=== PATIENT | male | born 1950 | race Caucasian/White ===

== ENCOUNTER 2017-09-09 12:00 | Observation (INO) | payer MEDICARE, OTHER ==
[2017-09-09 12:51] LABS: ALT (SGPT) 24 U/L (8-55); AST (SGOT) 24 U/L (5-34); Albumin 4.7 g/dL (3.4-4.8); Alkaline Phosphatase 100 U/L (40-150); Anion Gap 15 mmol/L (10-20); BUN (Urea Nitrogen) 17 mg/dL (8.4-25.7); Bilirubin, Total 2.9 mg/dL (0.2-1.2); CK (CPK) 93 U/L (30-200); Calc. Creatinine Clearance 0 mL/min (70-130); Calcium 9.8 mg/dL (7.8-10.44); Carbon Dioxide 22 mmol/L (23-31); Chloride 102 mmol/L (98-107); Estimated GFR-MDRD 77; Globulin 2.9 g/dL (2.4-3.5); Glucose 104 mg/dL (80-115); Lipase 17 U/L (8-78); Potassium 3.8 mmol/L (3.5-5.1); Protein, Total 7.6 g/dL (5.8-8.1); Sodium 135 mmol/L (136-145)
[2017-09-09 12:53] LABS: #Lymphocytes 0.7 thou/uL (1.20-3.40); #Monocytes 0.7 thou/uL (0.11-0.59); #Neutrophils 3.9 thou/uL (1.40-6.50); %Basophils 0.6 % (0.0-1.0); %Eosinophils 0.4 % (0.0-10.0); %Lymphocytes 13.2 % (21.0-51.0); %Monocytes 12.6 % (0.0-10.0); %Neutrophils 73.2 % (42.0-75.0); Mean Corpuscular HGB CONC 34.6 g/dL (32.0-36.0); Mean Corpuscular Hemoglobin 33.4 pg (27.0-31.0); Mean Corpuscular Volume 96.7 fL (78.0-98.0); Mean Platelet Volume 7.4 fL (7.4-10.4); Platelet Count 249 thou/uL (130-400); RBC Distribution Width 12.5 % (11.5-14.5); White Blood Cell (WBC) Count 5.3 thou/uL (4.8-10.8)
[2017-09-09 12:55] LABS: CKMB 2.5 ng/mL (0-6.6); Troponin I Less than 0.010 ng/mL (< 0.028)
[2017-09-09] MEDS ORDERED: Nitroglycerin 0.4 MG TAB (25 Tab Bottle) ONE (13:29)
[2017-09-09 13:49] LABS: Digoxin 0.62 ng/mL (0.8-2.0)
--- NOTE | 2017-09-09 14:44 | RAD ---
PORTABLE AP CHEST X-RAY: 09/09/2017 HISTORY: Chest pain. History of myocardial infarction. Atrial fibrillation. CHF. COMPARISON: None available. FINDINGS: A coronary artery stent overlies the left cardiac border. The cardiac silhouette is magnified by pro jection but is at the upper limits of normal to mildly enlarged. The pulmonary vasculature is within normal limits. The lungs are clear. Degenerative change is seen in the spine. IMPRESSION: 1. No acute cardiopulmonary process. 2. Upper limits of normal to borderline cardiomegaly. POS: CHRISTINA
[2017-09-09] MEDS ORDERED: Nitroglycerin 2% Ointment 1 INCH/1 GM Packet ONE (14:48)
[2017-09-09 15:12] LABS: Troponin I 0.016 ng/mL (< 0.028)
[2017-09-09] MEDS ORDERED: Nitroglycerin 0.4 MG TAB (25 Tab Bottle) PO PRN (15:30)
[2017-09-09] MEDS ORDERED: Acetaminophen 325 MG TAB PO PRN (15:30)
[2017-09-09 15:55] VITALS: BMI 25.7
[2017-09-09] MEDS: Rivaroxaban 10 MG TAB PO SCH (18:35)
[2017-09-09 19:51] LABS: Troponin I Less than 0.010 ng/mL (< 0.028)
[2017-09-09] MEDS: Carvedilol 6.25 MG TAB PO SCH (20:30)
[2017-09-09] MEDS: Atorvastatin Calcium 40 MG TAB PO SCH (20:31)
[2017-09-09] MEDS: Magnesium Oxide 400 MG TAB PO SCH (20:31)
--- NOTE | 2017-09-10 01:01 | HP ---
DATE OF SERVICE: 09/09/2017 PRIMARY CARE PHYSICIAN: Dr. Diggs of [facility] [place]. CHIEF COMPLAINT: Chest tightness. HISTORY OF PRESENT ILLNESS: This is a 67-year-old male with history of coronary artery disease and what he describes as massive OH in 06/2016, atrial fibrillation with hospitalization last week at [facility] and addition of Xarelto and digoxin, obstructive sleep apnea, hypertension, dyslipidemia, who presents to the emergency room here complaining of chest tightness. The patient reports that he had been in sinus rhythm up until a week ago with a return to atrial fibrillation. He contacted his doctor and was hospitalized overnight, discharged 3 days ago on Xarelto and digoxin. At discharge he reports the palpitations resolved and he was feeling better until this morning. As he was driving to this area, he experienced chest tightness, palpitations and a rapid heart rate. He denies any precipitating factors or relieving factors, denies any radiation of the tightness, rated as a 5/10 in severity. He also noticed that his pulse was racing, he felt dizzy and had tingling sensation all over. He continued to drive here and the symptoms persisted. There was no change to his usual morning routine, and he had taken his medications this morning which are carvedilol, digoxin, and lisinopril. He denies any fevers, chills, nausea, vomiting or abdominal pain. He denies any precipitating factors for this morning symptoms. He notes now his chest feels a little bit tight, but overall is feeling better. In the emergency room, the patient received nitro paste 1 inch, nitroglycerin 0.4 mg sublingual, 324 mg of aspirin and 500 mL of normal saline and Hospitalist called for admission. ALLERGIES: No known drug allergies. CURRENT MEDICATIONS: Reconciled with the list that he provided; 1. Atorvastatin 40 mg at bedtime. 2. Carvedilol 6.25 mg b.i.d. Of note, this was decreased about 2 weeks ago due to hypotension. 3. Clopidogrel 65 mg once a day. 4. Digoxin 125 mcg once daily. 5. Lisinopril 2.5 mg once daily. 6. Magnesium oxide 400 mg b.i.d. 7. Xarelto 20 mg at bedtime. 8. Colace 100 mg b.i.d. PAST MEDICAL HISTORY: 1. Atrial fibrillation with history of cardioversion and ablation, and hospitalization last week for medication adjustment. 2. Coronary artery disease with 3 stents and what he describes as massive OH requiring ECMO in 06/2016. 3. History of renal failure requiring dialysis with associated OH, resolved. 4. Dyslipidemia. 5. Hypertension. 6. Obstructive sleep apnea, uses a CPAP. 7. Lower extremity numbness post ECMO. PAST SURGICAL HISTORY: ECMO in 06/2016 and cardiac stent x3. SOCIAL HISTORY: The patient drinks beer about 5 days per week, uses three per day, uses snuff 1 can per week. He lives with his who is his surrogate decision maker in [place], [place]. FAMILY HISTORY: Dad of congestive heart failure at age 69. REVIEW OF SYSTEMS: Negative for fevers, chills, nausea, vomiting, abdominal pain, change in urination. Positive only as noted in the HPI. All remaining review of systems are reviewed and negative. PHYSICAL EXAMINATION: VITAL SIGNS: Blood pressure 126/79, pulse 74, respirations 17, sat is 95% on room air, temperature 98.3. GENERAL: Awake, alert, responsive, in no apparent distress. HEENT: Pupils are equal and round. Extraocular movements intact. Tympanic membranes translucent. Oral mucosa is pink and moist. NECK: Supple, nontender. LYMPHATICS: No palpable cervical or supraclavicular lymphadenopathy. LUNGS: Clear to auscultation bilateral. HEART: Normal S1, S2. Irregularly irregular. No audible murmurs. ABDOMEN: Soft. Present bowel sounds. Nontender, nondistended. EXTREMITIES: No pitting edema. VASCULAR: 2+ dorsalis pedis pulses. NEUROLOGIC: No focal deficits. PSYCHIATRIC: Euthymic, linear, logical, goal directed thought process. SKIN: No visible rashes. IMAGING: EKG is personally reviewed, atrial fibrillation with a rate of 101, left axis deviation, normal QRS and QT corrected intervals, no ST changes, incomplete right bundle branch block with abnormal R-wave progression. Chest x-ray is personally reviewed, shows no acute abnormalities. LABORATORY DATA: Labs reviewed. 1. CBC: 5.3, 14, 40.6, 249. 2. Chemistry: 135, 3.8, 102, 22, 17, 0.98, 104. 3. LFTs are normal except a bilirubin is 2.9. 4. Troponin x2 negative. 5. BNP 232. 6. Digoxin level is 0.62. IMPRESSION: 1. Symptomatic atrial fibrillation with what is described as rapid ventricular response and associated chest tightness, despite beta erica and digoxin. 2. Coronary artery disease with history of myocardial infarction requiring ECMO. 3. Hypertension. 4. Dyslipidemia. 5. Obstructive sleep apnea. 6. History of renal failure and recovery with normal renal function now. 7. Lower extremity paresthesias s/p ECMO. 8. Tobacco abuse. PLAN: 1. Observation status in the hospital. 2. Echocardiogram, telemetry monitoring, Cardiology consultation, and obtain a third troponin. 3. Continuing his usual medications with hold parameters on the carvedilol given the history of hypotension. 4. Continue his full anticoagulation with Xarelto. 5. Further recommendations per Cardiology. 6. We will order a CPAP. The patient reports his home setting is 5. 7. Deep venous thrombosis prophylaxis. He is fully anticoagulated. 8. Gastrointestinal prophylaxis not indicated. 9. Code status is FULL and surrogate decision maker is his above. 10. The patient is at high risk given age, comorbidities, and current presentation. 11. I reviewed the plan of care with the patient and his . No questions or further needs at end of evaluation. BOBBID
[2017-09-10 06:09] LABS: #Lymphocytes 0.7 thou/uL (1.20-3.40); #Monocytes 0.4 thou/uL (0.11-0.59); #Neutrophils 2.9 thou/uL (1.40-6.50); %Basophils 0.3 % (0.0-1.0); %Eosinophils 0.5 % (0.0-10.0); %Lymphocytes 16.5 % (21.0-51.0); %Neutrophils 73.7 % (42.0-75.0); Hemoglobin 12.2 g/dL (14.0-18.0); Mean Corpuscular HGB CONC 34.1 g/dL (32.0-36.0); Mean Corpuscular Hemoglobin 33.4 pg (27.0-31.0); Mean Corpuscular Volume 97.9 fL (78.0-98.0); Mean Platelet Volume 7.1 fL (7.4-10.4); Platelet Count 183 thou/uL (130-400); RBC Distribution Width 12.4 % (11.5-14.5); Red Blood Cell (RBC) Count 3.65 mill/uL (4.70-6.10)
[2017-09-10 06:19] LABS: Anion Gap 11 mmol/L (10-20); BUN (Urea Nitrogen) 14 mg/dL (8.4-25.7); Calc. Creatinine Clearance 119 mL/min (70-130); Calcium 8.9 mg/dL (7.8-10.44); Carbon Dioxide 23 mmol/L (23-31); Chloride 108 mmol/L (98-107); Estimated GFR-MDRD Greater than 90; Glucose 104 mg/dL (80-115); Potassium 3.8 mmol/L (3.5-5.1); Sodium 138 mmol/L (136-145)
[2017-09-10] MEDS: Carvedilol 6.25 MG TAB PO SCH ×2 (07:34→20:30)
[2017-09-10] MEDS: Digoxin 0.125 MG TAB PO SCH (07:39)
[2017-09-10] MEDS: Clopidogrel Bisulfate 75 MG TAB PO SCH (07:39)
[2017-09-10] MEDS: Lisinopril 2.5 MG TAB PO SCH (07:40)
[2017-09-10] MEDS: Magnesium Oxide 400 MG TAB PO SCH ×2 (07:40→20:30)
--- NOTE | 2017-09-10 11:09 | CON ---
DATE OF CONSULTATION: 09/10/2017 REASON FOR CONSULTATION: Atrial fibrillation. PRIMARY ROD HANGER: In [place], [place]. HISTORY OF PRESENT ILLNESS: Mr. Oneal is a very pleasant 67-year-old gentleman with previous history of acute myocardial infarction to an unknown vessel in 06/2016. He has been seen and evaluated by [facility] in [place], his home town. He was visiting the [place] area due to his granddaughte r being born. He states he developed palpitations and heart fluttering. He decided to proceed to [facility] emergency room. He states he recently was diagnosed with atrial fibrillation 1 week ago. He was in the hospital rashad and started on Xarelto. He continued to be in atrial fibrillation. He was not placed on an antiarrhythmic therapy. He states his LVEF noted in the past was in the 40% range. No chest pain, pressure noted. He does state his last LVEF is estimated to 40%-45% in 01/2017. HOME MEDICATIONS: Include carvedilol, digoxin, Plavix, lisinopril, Colace, Xarelto, and atorvastatin . PAST MEDICAL HISTORY: CAD status post CA requiring echo in 06/2016, renal failure now resolved, hype rlipidemia, hypertension and obstructive sleep apnea. SOCIAL HISTORY: Positive alcohol use. REVIEW OF SYSTEMS: Ten-point review of systems is reviewed as above, otherwise negative. PHYSICAL EXAMINATION: GENERAL: Patient is a pleasant male who is in no acute distress. The patient appears his stated age . VITAL SIGNS: Blood pressure 100/70, pulse 64, temperature 98.1. NEUROLOGIC: The patient is alert and oriented times 3 with no focal neurologic deficits. HEENT: Sclerae without icterus. Mouth has moist mucous membranes with normal pallor. NECK: No JVD. Carotid upstroke brisk. No bruits bilaterally. LUNGS: Clear to auscultation with unlabored respirations. BACK: No scoliosis or kyphosis. CARDIAC: Irregularly irregular with normal S1 and S2. No S3 or S4 noted. No significant rubs, murm urs, thrills, or gallops noted throughout the precordium. PMI is not displaced. There is no paraste rnal heave. ABDOMEN: Soft, nontender, nondistended. No peritoneal signs present. No hepatosplenomegaly. No ab normal striae. EXTREMITIES: 2+ femoral and 2+ dorsalis pedis pulses. No cyanosis, clubbing, or edema. SKIN: No gross abnormalities. PERTINENT LABORATORY DATA: Hemoglobin 12.2, creatinine 0.8, BNP of 232. IMAGING DATA: Telemetry monitoring shows atrial fibrillation with episode of nonsustained VT x26 marc ts, asymptomatic. IMPRESSION: 1. Atrial fibrillation. 2. Previous myocardial infarction. 3. Nonsustained ventricular tachycardia. RECOMMENDATIONS: Certainly concerned about Mr. Oneal's recent episode of nonsustained VT. It appear s his atrial fibrillation was symptomatic, but has been noted over the last 2 weeks. This is not fel t to be a new finding. His CK troponins were negative. His BNP was the low normal range. Would rec ommend echo with Doppler in addition to EP consultation. We will place him on his outpatient medicat ions.
--- NOTE | 2017-09-10 14:52 | PDOC.PN ---
- Subjective Encounter Start Date: 09/10/17 Encounter Start Time: 12:30 -: old records requested/rev Pt seen and exmained, chart reviewed in its entirety, this is my first visit with this patient Seen by cardiology michael, wants EP to see in the AM No F/C, no N/V/d/c, no further CP or palpitations All systems reviewed and neg x as above - Objective Resuscitation Status: Resuscitation Status FULL:Full Resuscitation MAR Reviewed: Yes Vital Signs & Weight: Vital Signs (12 hours) Temp Pulse Resp BP BP Pulse Ox 09/10/17 11:55 97.9 F 93 16 118/79 98 09/10/17 10:53 98 09/10/17 08:00 98.1 F 64 16 96 09/10/17 07:52 98.1 F 64 16 100/70 96 09/10/17 07:47 98.1 F 66 16 103/73 96 09/10/17 07:40 70 09/10/17 07:39 70 09/10/17 07:34 100/70 09/10/17 03:07 98 F 76 20 93/65 97 Weight Weight 202 lb 3.2 oz I&O: 09/09/17 09/10/17 09/11/17 06:59 06:59 06:59 Intake Total 800 Balance 800 Result Diagrams: 09/10/17 05:44 09/10/17 05:44 Radiology Reviewed by me: Yes EKG Reviewed by me: Yes Phys Exam - Physical Examination Constitutional: NAD HEENT: PERRLA, moist MMs, sclera anicteric, oral pharynx no lesions Neck: no nodes, no JVD, supple, full ROM Respiratory: no wheezing, no rales, no rhonchi, clear to auscultation bilateral Cardiovascular: RRR, no significant murmur, no rub Gastrointestinal: soft, non-tender, no distention, positive bowel sounds Musculoskeletal: no edema, pulses present Neurological: non-focal, normal sensation, moves all 4 limbs Lymphatic: no nodes Psychiatric: normal affect, A&O x 3 Skin: no rash, normal turgor, cap refill <2 seconds Dx/Plan - Plan cont current plan of care, out of bed/ambulate * . follow up on cards and EP recs
[2017-09-10] MEDS: Atorvastatin Calcium 40 MG TAB PO SCH (20:30)
[2017-09-10] MEDS: Rivaroxaban 10 MG TAB PO SCH (20:30)
[2017-09-11] MEDS: Clopidogrel Bisulfate 75 MG TAB PO SCH (09:13)
[2017-09-11] MEDS: Digoxin 0.125 MG TAB PO SCH (09:13)
[2017-09-11] MEDS: Magnesium Oxide 400 MG TAB PO SCH (09:13)
[2017-09-11] MEDS: Carvedilol 6.25 MG TAB PO SCH (09:13)
[2017-09-11] MEDS: Lisinopril 2.5 MG TAB PO SCH (09:13)
--- NOTE | 2017-09-11 10:24 | PDOC.CTH ---
Cardiology Progress Note - Subjective Doing well. Rate controlled. - Objective Vital Signs Temp Pulse Resp BP Pulse Ox 09/11/17 09:13 72 09/11/17 07:48 98.2 F 80 18 09/11/17 07:33 97.7 F 73 16 106/71 96 09/11/17 03:56 98.2 F 80 18 92/58 L 96 09/10/17 23:10 98.1 F 83 18 95/57 L 97 Weight 200 lb 12.8 oz 09/10/17 09/11/17 09/12/17 06:59 06:59 06:59 Intake Total 800 520 Balance 800 520 - Physical Examination General/Neuro: alert & oriented x3, NAD Neck: carotid US brisk, no JVD present Lungs: unlabored respirations Heart: other: (IRR) Abdomen: NT/ND, soft Extremities: + femoral B - Labs Result Diagrams: 09/10/17 05:44 09/10/17 05:44 Troponin/CKMB CK-MB (CK-2) 2.5 ng/mL (0-6.6) 09/09/17 12:16 Troponin I Less than 0.010 ng/mL (< 0.028) 09/09/17 19:18 - Assessment/Plan 1. Afib 2. Ischemic CM (EF 30-35%) 3. Previous SD 4. s/p stent Givne EF as above, recommend lifevest EP consult given NSVT Continue po ACT and rate control.
--- NOTE | 2017-09-11 12:26 | CON ---
DATE OF CONSULTATION: 09/11/2017 ELECTROPHYSIOLOGY CONSULTATION REFERRING PHYSICIAN: Dr. Dequan Carroll HISTORY: I am seeing Mr. Oneal at our [facility] telemetry floor as an electrophysiology c onsultant for the following problems: 1. Persisting atrial fibrillation. A. Prior history of ablation about 5 years ago, on chronic Multaq therapy 1 now off that for the t year. B. Now with recurrent atrial fibrillation for at least a week's duration. C. Recently initiated Xarelto. 2. Chronic systolic congestive heart failure with ischemic cardiomyopathy. A. Extensive myocardial infarction in 06/2016 followed by stent placement. B. Previous LVEF in the 40-45% per patient, now LVEF down to 30% to 35%. 3. Nonsustained ventricular tachycardia, total 25 beats monomorphic VT seen on the day of admission. 4. Prior history of stent placement. 5. History of obstructive sleep apnea. 6. Risk factors including hyperlipidemia and hypertension. ALLERGIES: None noted. MEDICATIONS AT HOME: Tylenol, Lipitor, Coreg, Plavix, ____, Zestril, magnesium oxide, recently start ed Xarelto, digoxin as well. SUBJECTIVE: Mr. Oneal is here due to palpitations and dizziness. He originally was noted to have at [facility] fibrillation for which he was transiently hospitalized in [place] and his inspector coated fabrics has seen him. He was placed on Xarelto and digoxin. He was asked to do a followup, which he has not been abl e to keep hence he was hospitalized here. His rate control was reasonable in [place], but since then has worsened on the current regimen and while visiting his grandson required hospitalization. He marcano s not passed out. Denies chest pains. At this point he has no PND, orthopnea/fluid overload. No fe william, chills or cough. REVIEW OF SYSTEMS: The rest of the 12-point systems otherwise unremarkable. PAST MEDICAL HISTORY: As above. He did have extensive myocardial infarction in 06/2016, he required ECMO therapy at [facility]. He had a remote history of atrial fibrillation and eventually unde rwent what sounds like a pulmonary venous isolation procedure 5 years ago by EP in [place]. Since he did good on Multaq, but his Multaq was discontinued at the time of his myocardial infarction year. He says this is his first recurrence since. SOCIAL HISTORY: The patient drinks about 5 beers a week. Denies ETOH or drug use. FAMILY HISTORY: Noncontributory. OBJECTIVE: VITAL SIGNS: Blood pressure is 106/71, heart rate 73, respiration 16, temperature 97.7 degrees Fahre nheit. GENERAL: He is alert and oriented man in no apparent distress. NECK: Supple. Jugular veins are not distended. CHEST: Coarse without crackles. CARDIAC: Heart sounds are irregularly irregular. S1, S2, variable. No murmur or gallop. ABDOMEN: Benign. Bowel sounds positive. EXTREMITIES: Lower extremities without edema, clubbing or cyanosis. Pulses are adequate. NEUROLOGIC: Patient is nonfocal. MUSCULOSKELETAL: No joint deformities. SKIN: Without rash. DATABASE: EKGs were reviewed reveals atrial fibrillation, narrow QRS, no significant ST-T changes. LABORATORY DATA: White count 4, hemoglobin 12.2, platelet count is 183. Sodium 138, potassium 3.8, BUN is 14, creatinine is 0.8. The troponin levels are 0.01, 0.016 consecutively. BNP is 232. The 2 D echo report from 09/10/2017 reveals LVEF 30-35%, anterior wall akinesis, mild MR, mild TR. The lef t atrium is normal in size. ASSESSMENT AND PLAN: Mr. Oneal is a pleasant 67-year-old man with history of atrial arrhythmias, rem ote ablation and maintenance of sinus rhythm with Multaq over the last year, but it was stopped due t o his extensive heart attack. His LV function recovered, but not perfectly, but now it seems to be w orse than the number recorded before in the moderate to severe range. Also, complicating issues, his recurrent atrial fibrillation with rapid rates at well as clear nonsustained monomorphic ventricular tachycardia run up to 25 beats documented on telemetry in this admission. I discussed the treatment options with him. We clearly worry about future ventricular arrhythmias on him and now his LVEF is 30-35%. He actually qualifies for ICD implantation and I discussed the opti ons for that. On the other hand, he would like to wait with this and would like to discuss this opti on with his inspector coated fabrics back in [place]. In the meantime LifeVest therapy is recommended. This the rapy also not on the reasonable. Hence his LVEF may improve with rate control. 2. Atrial arrhythmias. Now recurrence. I think it will be reasonable to have him undergo DOREEN guide d cardioversion. He may need antiarrhythmic therapy after that and the most efficacious in his situa tion would be amiodarone which also would effectively treat his ventricular arrhythmias. Hence his L V dysfunction and prior coronary disease class 1C agents are poor options. Sotalol could be an alter [place] to amiodarone as well. I am hesitant to recommend Multaq, hence history of CHF, although at t his point, no fluid overload symptoms are noted. 3. Anticoagulation to be continued with Xarelto, on the other hand, his anticoagulation is not suffi cient to ensure no clots in place and a DOREEN might be recommended prior to a planned cardioversion. 4. Heart failure therapy as per Dr. Carroll and his inspector coated fabrics in [place]. I will be happy to see this patient back if necessary, although I suspect he will follow with his car diologist in [place] in the future.
[2017-09-11 16:15] VITALS: BP 100/66; TEMP 97.2
[2017-09-11] MEDS: Rivaroxaban 10 MG TAB PO SCH (17:11)
== END 2017-09-11 17:45 | disposition home or self-care (01) ==
LOC: ERS 12:00 → 2SW 13:46
PROVIDERS: ADMIT Family Medicine; ATTEND Family Medicine
DX: I48.91 Unspecified atrial fibrillation (principal); E78.5 Hyperlipidemia, unspecified; G47.33 Obstructive sleep apnea (adult) (pediatric); I08.1 Rheumatic disorders of both mitral and tricuspid valves; I11.0 Hypertensive heart disease with heart failure; I50.22 Chronic systolic (congestive) heart failure; I25.10 Atherosclerotic heart disease of native coronary artery without angina pectoris; I25.2 Old myocardial infarction; I25.5 Ischemic cardiomyopathy; Z79.01 Long term (current) use of anticoagulants
CPT/HCPCS: 71045; 80048; 80053; 80162; 82550; 82553; 83690; 83735; 83880; 84484 ×2; 85025 ×2; 93005; 93306; 94760 ×3; 99285; G0378 ×2; 36415